=== PATIENT | female | born 1990 | race Native Hawaiian/Other Pacific Islander ===

== ENCOUNTER 2016-06-16 03:14 | Emergency (ER) | payer BC ==
[~2016-06-16] VITALS: Ht 162.6 cm; Wt 61.7 kg
[2016-06-16 03:41] LABS: PLATELET COUNT 412 K/uL (152-353)
[2016-06-16 03:51] LABS: POTASSIUM 3.3 mmol/L (3.6-5.2); SODIUM 132 mmol/L (136-145)
[2016-06-16] MEDS ORDERED: LORA1TAB17 PO (04:53)
[2016-06-16 04:54] VITALS: BP 113/51; TEMP 98.4
== END 2016-06-16 05:10 | disposition home or self-care (01) ==
LOC: ED 03:14
DX: F41.9 Anxiety disorder, unspecified (principal); F15.10 Other stimulant abuse, uncomplicated
CPT/HCPCS: 36415; 80053; 80307; 81000; 85027; 96361; 96374; 99284; G0479; J2060

== ENCOUNTER 2020-01-13 09:44 | Emergency (ER) | payer OTHER ==
[~2020-01-13] VITALS: Ht 162.6 cm; Wt 74.4 kg
[~2020-01-13 09:44] MED LIST: LORA1TAB17 PO
[2020-01-13 11:03] VITALS: BP 93/53; TEMP 98.5
== END 2020-01-13 11:03 | disposition home or self-care (01) ==
LOC: ED 09:44
DX: M54.2 Cervicalgia (principal); M54.5 Low back pain
CPT/HCPCS: 81025; 96372; 99283; J1885

== ENCOUNTER 2021-08-28 15:38 | Emergency (ER) | payer OTHER ==
[~2021-08-28] VITALS: Ht 162.6 cm; Wt 63.0 kg
[2021-08-28 15:40] VITALS: TEMP 98
[2021-08-28 17:02] LABS: PLATELET COUNT 248 K/uL (152-353)
[2021-08-28 17:08] LABS: POTASSIUM 3.8 mmol/L (3.6-5.2)
[2021-08-28 18:25] VITALS: BP 118/70
== END 2021-08-28 18:30 | disposition home or self-care (01) ==
LOC: ED 15:38
PROVIDERS: Emergency Medicine Emergency Medical Services
DX: R55 Syncope and collapse (principal); Z3A.15 15 weeks gestation of pregnancy
CPT/HCPCS: 36415; 80053; 81000; 85027; 93005; 96360; 99284